=== PATIENT | female | born 1990 | race Caucasian/White ===

== ENCOUNTER → 2016-12-11 | Outpatient (CLI) | payer OTHER ==
[2016-12-12 15:50] LABS: A/G RATIO 1.04 (()); ALB PEP SER 3.8 g/dL (3.4-4.7); ALP1 GLOB 0.2 g/dL (0.1-0.3); BETA GLOBS 1.1 g/dL (0.7-1.2); GAMMA GLOBS 1.4 g/dL (0.6-1.6); TOT PRT SERUM 7.5 g/dL (6.3 - 7.9)
[2016-12-12 18:33] LABS: IMPRESSION SEE COMMENTS (())
== END ==
LOC: LAB 08:29
PROVIDERS: ATTEND Physician Assistant
DX: R77.8 Other specified abnormalities of plasma proteins (principal)
CPT/HCPCS: 84155; 84165; 86334

== ENCOUNTER 2017-03-15 07:03 | Emergency (ER) | payer OTHER ==
[2017-03-15 07:20] VITALS: TEMP 97.7
[2017-03-15] MEDS ORDERED: Sodium Chloride 0.9% 1,000 ML PRIMARY IV ONE (07:21)
[2017-03-15] MEDS ORDERED: MORPHINE SULFATE 4 MG/1 ML IVP ONE (07:21)
[2017-03-15] MEDS ORDERED: ONDANSETRON 4 MG/2 ML VIAL IVP ONE (07:21)
--- NOTE | 2017-03-15 07:27 | PDOC ---
Female Problem HPI - General Chief Complaint: Genitourinary Complaint Stated Complaint: left flank pain Date Seen by Provider: 03/15/17 Time Seen by Provider: 07:22 Source: POSITIVE: Patient Exam Limitations: POSITIVE: No limitations Nurse's Notes Reviewed & Considered: Yes - History of Present Illness Initial Comments: Patient complaining of left lower quadrant and left flank pain. Patient was awakened this morning at 0500 hrs. with left CVA pain radiating into her flank and groin. Pain is described as pressure and sharp, that never completely goes away and comes in waves. She is unable to find a comfortable position. She and her have been trying to become . 2 days ago she began her menses which she stated has been irregular this week. It started out light, then became very heavy, and then became lightheaded again. She denies any fevers but does have chills and sweats. She has nausea but no vomiting no diarrhea. Denies headache. Denies chest pain, shortness of breath or cough. Body Location Affected: REPORTS: Abdomen Timing: REPORTS: Abrupt Duration: 1 hour Severity: Severe Quality: REPORTS: Cramping, "Pain", Sharpness, Stabbing, Throbbing, Pressure Location of Pain: REPORTS: Left, Abdominal Pain, Pelvic Pain, Pelvic Cramping, Pelvic Pressure, Sharp, Flank Pain Vaginal Bleeding: REPORTS: Abnormal Bleeding : 0 Para: 0 Sexual History: REPORTS: Active, No Contraceptive Urinary Symptoms: REPORTS: Discomfort w/ Urination, Burning w/ Urination Discharge: REPORTS: Vaginal Discharge Similar Symptoms Previously: No Recent Care Received: REPORTS: Denies Any Prior Injuries Related to Current Complaint?: No - Patient Home Medications Home Medications: Home Medications NK [No Home Medications Reported] 03/15/17 - Patient Allergies Allergies/Adverse Reactions: Allergies Allergy/AdvReac Type Severity Reaction Status Date / Time No Known Allergies Allergy Verified 03/15/17 07:08 Past Medical History - heen HEENT History: Denies History Cardiovascular History: Denies History Respiratory History: Denies History Gastrointestinal History: Denies History Genitourinary History: Denies History Endocrine History: Denies History Musculoskeletal History: Denies History Prosthesis or Implant: No Neurological History: Denies History Blood Disorders: Denies History Psychiatric History: Denies History History of Sexually Transmitted Diseases: No Female Reproductive History: Denies History LMP: 03/13/2017 Cancer History: Denies History In Past Year Been Physically Harmed or Verbally Threatened: No (PER PATIENT) History of MDRO: No History of Other Communicable Diseases: No Tobacco Use: Never Smoker Alcohol Use: None Substance Use Type: None Previous Surgical History: Yes Type / Date of Surgery: LEFT KNEE SCOPE Anesthesia Reactions: No Malignant Hyperthermia: No Family History of Malignant Hyperthermia: No Significant Family History: No pertinent family hx ROS - Limitations ROS Limitations: No Limitations Constitution: REPORTS: Chills, Diaphoresis Cardiovascular: REPORTS: Denies Cardiac Symptoms Respiratory: REPORTS: Denies Resp Symptoms Neurological: REPORTS: Denies Neuro Symptoms Gastrointestinal: REPORTS: Abdominal Pain, Nausea Endocrine: REPORTS: Denies Symptoms Musculoskeletal: REPORTS: Back Pain Genitourinary: REPORTS: Dysuria, Difficulty Urinating Eyes: REPORTS: Denies Symptoms ENT: REPORTS: Denies Symptoms Skin: REPORTS: Denies Skin Symptoms Lympathic: REPORTS: Denies Lympathic Symptoms Immunologic: POSITIVE: Denies Symptoms Psychiatric: POSITIVE: Denies Psych Symptoms Female Genitourinary Exam - General Appearance General Appearance: POSITIVE: Alert, Cooperative, No Evidence of Trauma, Moderate Distress - HEENT HEENT: POSITIVE: Head Inspection Nml, Eyes Inspection Nml, Ears Inspection Nml, Nose Inspection Nml, PERRL, EOMI - Neck Neck: POSITIVE: Normal Inspection, No Apparent Injury - Respiratory Respiratory: POSITIVE: No Respiratory Distress, Breath Sounds Normal, Chest Non- Tender - Cardiovascular Cardiovascular: POSITIVE: Regular Rate and Rhythm, Heart Sounds Normal - Abdomen Abdomen: POSITIVE: No Distention, Tenderness (Generalized tenderness greatest in the left lower quadrant and left flank.), Guarding, Decreased Bowel Sounds - Back Back: POSITIVE: CVA Tenderness (L) - Skin Skin: POSITIVE: Intact, Normal For Race, Warm, Dry, No Rash - Extremities Extremity: Non-Tender: (All Extremities), Normal ROM: (All Extremities), Normal Inspection: (All Extremities), Pelvis Stable: (All Extremities) - Neurological / Psychological Neurological: POSITIVE: Affect Apporpriate, Oriented X3, Motor Normal, Sensation Normal Female Genitourinary Progress - Results Reviewed by me Xrays/CTs/US Reviewed by me: Yes Discussed with Radiologist: Yes Lab Results Reviewed: Yes Lab Results:: Laboratory Results 03/15/17 Range/Units 07:15 WBC 7.71 (4.8-10.8) 10^3/uL RBC 4.54 (4.20-5.40) 10^6/uL Hgb 13.2 (12.0-16.0) g/dL Hct 39.3 (37.0-47.0) % MCV 86.6 (81-99) FL MCH 29.1 (27-31) PG MCHC 33.6 (33-37) g/dL RDW Std Deviation 42.7 (39-50) fL RDW Coeff of [place] 13.9 (11.5-14.5) % Plt Count 370 H (140-350) 10*3/uL MPV 9.7 (7.4-12.2) FL Immature Gran % (Auto) 0.1 (0-5) % Neut % (Auto) 41.8 L (50-80) % Lymph % (Auto) 50.3 H (10-50) % [place] % (Auto) 5.4 (5-15) % Eos % (Auto) 1.6 (0-8) % Baso % (Auto) 0.8 (0-1) % Immature Gran # (Auto) 0.01 10*3/UL Neut # (Auto) 3.22 10*3/UL Lymph # (Auto) 3.88 10*3/uL [place] # (Auto) 0.42 (0.3-0.8) 10*3/UL Eos # (Auto) 0.12 10*3/UL Baso # (Auto) 0.06 10*3/UL WBC Morphology Comment Normal morphology (NORM) Plt Morphology Comment Normal morphology (NORM) RBC Morph Comment Normal morphology (NORM) Sodium 138 (135-145) meq/L Potassium 3.3 L (3.8-5.2) meq/L Chloride 102 (98-112) meq/L Carbon Dioxide 24 (23-33) meq/L Anion Gap 12 (5-20) BUN 12 (7-22) mg/dL Creatinine 0.8 (0.50-1.20) mg/dL Estimated GFR > 60 (>60 ml/min/1.73m(2)) BUN/Creatinine Ratio 15.00 (6-20) Glucose 109 (78-110) mg/dL Calculated Osmolality 286.0 (267-292) mOsm/kg Calcium 9.1 (8.7-10.7) mg/dL Magnesium 2.0 (1.6-2.4) mg/dL Total Bilirubin 0.4 (0.3-1.2) mg/dL AST 27 (8-39) IU/L ALT 29 (9-52) IU/L Alkaline Phosphatase 49 (38-126) IU/L C-Reactive Protein < 0.5 (0.0-0.9) mg/dL Total Protein 7.4 (6.1-8.0) g/dL Albumin 4.2 (3.5-4.8) g/dL Globulin 3.2 (2.50-4.10) g/dL Albumin/Globulin Ratio 1.30 (1.3-2.0) mg/g TSH 2.25 (0.2700-4.2000) uIU/mL Serum HCG, Qual Negative Ur Collection Type Clean catch urine Urine Color Yellow Urine Clarity Slightly cloudy (CLEAR) Urine pH 5.5 (5.0-8.5) Ur Specific [place] 1.025 (1.005-1.030) Urine Protein 30 (NEG) mg/dl Urine Glucose (UA) Negative (NEG) mg/dL Urine Ketones Negative (NEG) Urine Occult Blood Large H (NEG) Urine Nitrate Negative (NEG) Urine Bilirubin Negative (NEG) Urine Urobilinogen 0.2 (0.2) EU/dL Ur Leukocyte Esterase Negative (NEG) Urine RBC 60-80 (NONE) /hpf Urine WBC 1-3 (NONE) Ur Squamous Epith Cells Few (NONE) Ur Renal Epithelial Cell None (NONE) Urine Crystals None Urine Bacteria None (NONE) Urine Casts None (NONE) Urine Mucus Few (NONE) Urine Trichomonas None (NONE) Urine Yeast None (NONE) Ur Culture Indicated? Culture set - Patient's Progress Pain Medication Addressed: POSITIVE: Yes Re-Examine Time: 08:51 Status: POSITIVE: Improved MDM / ED Course: Patient was examined, IV started, blood drawn and sent to the lab for studies, radiographic studies were obtained. Findings: CBC is within normal limits, comprehensive metabolic panel is unremarkable. Urinalysis positive for blood and positive for bacteria with leukocytes esterase present. CT scan of her abdomen and pelvis shows no acute intra-abdominal or intrapelvic abnormalities. Assessment: Abdominal pain. Likely etiology includes kidney stone which has passed, urinary tract infection, menstrual cramps. Plan: Discharge home, Oleksandr Hernandes. Follow-up with primary care physician. - Consult Counseled: POSITIVE: Patient, RE: Lab Results, RE: Radiology Results, RE: DX, RE : Need for F/U Patient Care Time - Estimated PCT Patient Care Time (In Minutes): 30 Vital Signs - Recent Vital Signs Vital Signs: Vital Signs (Last 8 hours) Temp Pulse Resp BP BP Pulse Ox 03/15/17 08:07 82 15 133/81 99 03/15/17 07:10 97.7 F 61 20 132/113 98 - VS Reviewed Vital Signs Reviewed: Yes Discharge Clinical Impression: Urinary tract infectious disease Discharge Disposition: Discharged to Home Condition: Stable Patient Instructions Given at Discharge: Urinary Tract Infection in Women (ED)
[2017-03-15 07:31] LABS: BILIRUBIN,URINE NEGATIVE (NEG); COLOR,URINE YELLOW; GLUCOSE, URINE (UA) NEGATIVE (NEG); NITRATE,URINE NEGATIVE (NEG); OCCULT BLOOD,URINE LARGE (NEG); PH,URINE 5.5 (5.0-8.5); PROTEIN,URINE 30 mg/dl (NEG); UROBILINOGEN,URINE 0.2 EU/dL (0.2)
[2017-03-15 07:36] LABS: BLOOD UREA NITROGEN 12 mg/dL (7-22); CALCIUM 9.1 mg/dL (8.7-10.7); EST GLOMERULAR FILTRATION > 60 (>60 ml/min/1.73m(2)); SERUM ALBUMIN 4.2 g/dL (3.5-4.8)
[2017-03-15 07:37] LABS: CLARITY,URINE SLIGHTLY CLOUDY (CLEAR); URINE SAMPLE TYPE CLEAN CATCH URINE
[2017-03-15 07:38] LABS: BASOPHILS # (AUTO) 0.06 10*3/UL; BASOPHILS % (AUTO) 0.8 % (0-1); EOSINOPHILS # (AUTO) 0.12 10*3/UL; EOSINOPHILS % (AUTO) 1.6 % (0-8); HEMATOCRIT 39.3 % (37.0-47.0); HEMOGLOBIN 13.2 g/dL (12.0-16.0); LYMPHOCYTES # (AUTO) 3.88 10*3/uL; MEAN CORPUSCULAR HEMOGLOBIN 29.1 PG (27-31); MEAN CORPUSCULAR HGB CONC 33.6 g/dL (33-37); MEAN CORPUSCULAR VOLUME 86.6 FL (81-99); MEAN PLATELET VOLUME 9.7 FL (7.4-12.2); MONOCYTES # (AUTO) 0.42 10*3/UL (0.3-0.8); MONOCYTES % (AUTO) 5.4 % (5-15); NEUTROPHILS # (AUTO) 3.22 10*3/UL; NEUTROPHILS % (AUTO) 41.8 % (50-80); RBC,URINE 60-80 /hpf; RED BLOOD COUNT 4.54 10^6/uL (4.20-5.40); SQUAMOUS EPITHELIAL CELL,UR FEW
[2017-03-15 07:42] LABS: C-REACTIVE PROTEIN < 0.5 mg/dL (0.0-0.9); PLATELET MORPHOLOGY COMMENT NORMAL MORPHOLOGY (NORM); RBC MORPHOLOGY COMMENT NORMAL MORPHOLOGY (NORM); WBC MORPHOLOGY COMMENT NORMAL MORPHOLOGY (NORM)
[2017-03-15 08:08] VITALS: RESP 15
--- NOTE | 2017-03-15 08:36 | DI ---
CT ABDOMEN SCAN WITH IV CONTRAST, 03/15/2017 7:21 AM : Clinical History: Left lower quadrant pain. Previous Exam: None at this facility. Scans are performed from the lower lung bases through the liver and kidneys with IV contrast. 95 ml o f Isovue 300 was injected IV. No oral or rectal contrast was ordered. The lung bases are clear. The liver is normal. The gallbladder is grossly normal. There is no abnorma lity of the spleen, pancreas, and adrenal glands. Both kidneys are normal in size, shape, position an d contour. There is no hydronephrosis or hydroureter. No renal or ureteral calculi are present. There are no abnormal retrocrural or periaortic nodes. No ascites is present. READING: Normal CT abdomen scan. CT PELVIS SCAN WITH IV CONTRAST, 03/15/2017 7:21 AM: Clinical History: See above. Previous Exam: None at this facility. Scans are performed from just superior to the umbilicus to the symphysis pubis with IV contrast. This is the same bolus of contrast used for the CT scans of the abdomen. Scans through the lower abdomen and pelvis show no masses or abnormal fluid collections. There is no adenopathy. The appendix is normal. The small bowel, terminal ileum, and ileocecal valve are normal. The colon is also normal. There are no hernias. The uterus and both ovaries are normal. READING: Normal CT scan of the pelvis.
== END 2017-03-15 09:05 | disposition home or self-care (01) ==
LOC: ER 07:03
DX: N39.0 Urinary tract infection, site not specified (principal); R11.0 Nausea; R10.32 Left lower quadrant pain
CPT/HCPCS: 74177; 80053; 81001; 81003; 83735; 84443; 84703; 85025; 86140; 87088; 96366; 96374; 96375; 99283; J2270; J2405; J7030

== ENCOUNTER 2019-01-06 08:43 | Observation (INO) ==
[2019-01-06 09:59] LABS: BILIRUBIN,URINE NEGATIVE (NEG); CLARITY,URINE CLEAR (CLEAR); COLOR,URINE YELLOW (Y); GLUCOSE, URINE (UA) NEGATIVE (NEG); OCCULT BLOOD,URINE NEGATIVE (NEG); PH,URINE 8.5 (5.0-8.5); PROTEIN,URINE 30 mg/dl (NEG); UROBILINOGEN,URINE 0.2 EU/dL (0.2)
[2019-01-06 10:05] LABS: BACTERIA,URINE FEW; URINE CRYSTALS FEW; URINE SAMPLE TYPE CLEAN CATCH URINE
[2019-01-06 10:42] VITALS: O2SAT 98
[2019-01-06] MEDS ORDERED: LIDOCAINE W/ SODIUM BICARB 0.5 ML SYR SUBD PRN (11:40)
[2019-01-06] MEDS ORDERED: Ondansetron ODT Tab 4 MG TAB PO PRN (11:40)
[2019-01-06] MEDS ORDERED: CALCIUM CARBONATE 500 MG (TUMS) CHEWABLE TABLET PO PRN (11:40)
[2019-01-06] MEDS ORDERED: Lactated Ringers 1,000 ML PRIMARY IV ONE (11:40)
[2019-01-06] MEDS ORDERED: ONDANSETRON 4 MG/2 ML VIAL IVP PRN (11:40)
--- NOTE | 2019-01-06 12:01 | OB.PROGRES ---
Intake - - Reason for Visit/Chief Complaint: Leakage of Fluid Admitted From: Home - Estimated Due Date: 03/27/19 Gestational Age in Weeks and Days: 28 Weeks and 4 Days : 1 Maternal - Vital Signs Last Taken Vital Signs: Vital Signs - Last Taken Temperature 98.2 F 01/06/19 09:29 Pulse Rate 80 01/06/19 09:29 Respiratory Rate 20 01/06/19 09:29 Blood Pressure 117/77 01/06/19 09:29 Pulse Ox 98 01/06/19 09:29 - Vaginal Discharge Vaginal Bleeding Amount: None Vaginal Discharge Amount: Moderate Vaginal Discharge Description: Thick Vaginal Discharge Color: White Vaginal Itching: No Results - Bedside Testing Bedside Urine Ketone: Trace Bedside Urine Leukocytes Esterase: Moderate Bedside Urine Nitrite: Negative Bedside Urine Occult Blood: Negative Bedside Urine Protein: Trace Bedside Specific [place]: 1.030 Assessment and Plan - Assessment / Plan Additional Assessment/Plan Details: The patient is a 26-year-old at 28-4/7 weeks who was followed in [place], [place] for her . The patient presented to our labor and delivery after having a gush of fluid earlier this morning and then wearing a pad and the pad was wet. The patient was not having contractions that she was aware of. No vaginal bleeding. The patient does relay that she was started on iron twice a day earlier in the week and has been nauseated and not taking as much fluids or food secondary to the nausea that the iron has caused. Her stomach has been slightly upset. Some loose stools. No fever or chills. No dysuria. In labor and delivery, the nurse completed a speculum exam and there was white discharge present. No liquid fluid noted. Cervix appeared closed. A vaginosis panel was completed and this was negative. Amnio sure was completed and this was negative. Formal ultrasound showed MILADY to be 5.3 cm. The baby was in the breech presentation. Head circumference was 11th percentile, BPD was the less than the 2nd percentile abdominal circumference was 71st percentile and femur length was 24th percentile. Urinalysis with micro-was completed and there were 5-10 white blood cells, no red blood cells and no epithelial cells. Moderate leukoesterase. Past medical history-no hypertension, no diabetes, no asthma. No known drug allergies No tobacco, no alcohol, no drugs. CUT OFF [place] [employer] [employer] history with menarche age 11, no STI history, no abnormal Pap smear history. OB history-patient states that she had difficulty conceiving and this was conceived using Clomid. Objective: Please see the vital signs No acute distress, alert and oriented 3 Lungs clear to auscultation Heart regular rate and rhythm Abdomen is gravid, soft, nontender, no guarding or rebound Extremities without edema and no Homans Labs, amnio sure was negative Vaginosis panel negative for bacterial vaginosis or yeast infection fibronectin was negative UA showed 5-10 white blood cells, no red blood cells, no epithelial cells, moderate leukocyte esterase, and 1+ protein Ultrasound results as above, MILADY was 5.3, baby is in breech presentation and head circumference was 11th percentile and BPD was less than 2nd percentile. AC was 71st percentile and femur length was 24th percentile. External monitoring showed no regular contractions, heart rate with good accelerations. Assessment: IUP 28-4/7 weeks with oligohydramnios and possible PPROM this morning. Amnio sure was negative. There was no fluid on speculum exam and the patient is not leaking fluid currently although she does have a white vaginal discharge by nurse's exam and the patient states that she feels moist in her vaginal area. No leaking of fluid. Hopefully, the oligohydramnios is secondary to the decrease in oral intake sec ondary to the patient's nausea and not feeling well over the past several days since starting iron. The patient specific gravity of her urine was 1.020. Hopefully, the gush of fluid was urine secondary to the patient having a urinary tract infection and having increased spontaneous leakage of urine. The BPD was less than 2nd percentile but the baby is in the breech presentation. The head circumference was 11th percentile. When a baby is in the breech presentation, it is normal for the BPD to be more narrow in presentation. EFW was 1272 grams which is 42nd percentile. The patient's cervical length was 41 mm transabdominally. The patient states that she is anemic by labs at 28 weeks. The patient believes that her 28 week labs were normal otherwise. Plan: IV fluids will be administered with LR bolus over the next hour and then 125 an hour. Check a CBC and CMP. Recheck for amnio sure for PPROM this afternoon. If amnio sure is negative, then we will continue IV fluids tomorrow morning. If the amnio sure is positive, then betamethasone would be offered to the patient with a repeat dose in 24 hours and I would contact our maternal- medicine consultants to evaluate for transfer secondary to PPROM at 28-4/7 weeks. I discussed the above plan with the patient and her , who is in [place], [place], and both expressed understanding with the current plan. External monitoring-continuous Clear liquids SCDs
--- NOTE | 2019-01-06 12:26 | DI ---
US OB , Limited,01/06/2019 9:30 AM: Clinical History: Leaking fluid Previous Exam: None at this facility. Findings: Multiple transabdominal grayscale and color Doppler sonographic images are obtained through the pelvi s and demonstrate Oligohydramnios with an amniotic fluid index measuring 5.3 cm. There is a single live intrauterine gestation in breech presentation. There is normal motions of the limbs. Detected Doppler heart tones are unremarkable. The cervix is long and closed measuring 4.1 cm in length. The placenta is anterior and grade 1 without visible defects. Detected Doppler heart tones were not measured. Estimated gestational age is determined by a composite of biparietal diameter, which measured at less than the 2nd percentile, abdominal circumference, head circumference and femur length and yielded an estimated gestational age by ultrasound of 28 weeks 2 days. Estimated weight was 1272 g (42nd percentile). Impression: 1. Oligohydramnios. 2. Single live intrauterine gestation with size equal to dates although the biparietal diameter measu res at less than the 2nd percentile.
[2019-01-06 14:06] LABS: BASOPHILS # (AUTO) 0.02 10*3/UL; BASOPHILS % (AUTO) 0.2 % (0-1); EOSINOPHILS # (AUTO) 0.03 10*3/UL; EOSINOPHILS % (AUTO) 0.3 % (0-8); Hematocrit [HCT] 32.1 % (37.0-47.0); Hemoglobin [HGB] 10.2 g/dL (12.0-16.0); MEAN CORPUSCULAR HEMOGLOBIN 26.6 PG (27-31); MEAN CORPUSCULAR HGB CONC 31.8 g/dL (33-37); MEAN CORPUSCULAR VOLUME 83.8 FL (81-99); MEAN PLATELET VOLUME 9.7 FL (7.4-12.2); MONOCYTES # (AUTO) 0.52 10*3/UL (0.3-0.8); MONOCYTES % (AUTO) 4.4 % (5-15); NEUTROPHILS # (AUTO) 8.47 10*3/UL; NEUTROPHILS % (AUTO) 71.2 % (50-80); RED BLOOD COUNT 3.83 10^6/uL (4.20-5.40); WBC MORPHOLOGY COMMENT NORMAL MORPHOLOGY (NORM)
[2019-01-06 14:07] LABS: PLATELET MORPHOLOGY COMMENT NORMAL MORPHOLOGY (NORM); RBC MORPHOLOGY COMMENT NORMAL MORPHOLOGY (NORM)
[2019-01-06 14:17] LABS: BLOOD UREA NITROGEN 5 mg/dL (7-22); SERUM ALBUMIN 3.6 g/dL (3.5-4.8)
[2019-01-06] MEDS: Lactated Ringers 1,000 ML PRIMARY IV SCH ×2 (16:00→21:07)
--- NOTE | 2019-01-06 16:08 | OB.PROGRES ---
Interval History: The patient states that she has felt a couple contractions and uterine irritability with tightening. No more gushes of fluid. No vaginal bleeding. Positive movement. Objective - Cervical Exam Cervical Exam: Sterile speculum exam completed. White vaginal discharge in vaginal vault wiped away with sterile large Q-tip. Cervical OS visualized. There was minimal bright red blood perhaps from the previous speculum exam a couple hours ago. There was no fluid in the vaginal vault. No pooling. Negative fluid with Valsalva at cervical OS. Q-tip to vaginal sidewalls and then to slide. Negative ferning. The cervix appeared closed. Digital exam not completed. The patient has significant vaginismus with speculum exam. The patient informed me that she has a history of this. [place]: Some uterine irritability noted earlier. Now after 2 L of IV fluid, much decreased uterine irritability noted Heart Rate Interpretation Category: Category I - Labs CBC and BMP: 01/06/19 14:03 01/06/19 14:03 - Vital Signs Last Taken Vital Signs: Vital Signs - Last Taken Temperature 98.3 F 01/06/19 11:40 Pulse Rate 74 01/06/19 11:40 Respiratory Rate 18 01/06/19 11:40 Blood Pressure 111/65 01/06/19 11:40 Pulse Ox 98 01/06/19 11:40 Assessment and Plan - Assessment / Plan Additional Assessment/Plan Details: Assessment: IUP 28-4/7 weeks with oligohydramnios. History of gush of fluid and then moist perineal pad earlier today. Just now, no ferning and no pooling and negative nitrazine. The amnio sure was completed and was negative again. Uterine irritability present but did improve with IV fluids. Urinary tract infection by UA with micro--culture is pending. Plan: Now that we have had amnio sure 2 negative as well as sterile speculum exam showing no ferning, no pooling and negative nitrazine, I would like to observe the patient overnight with IV fluids and then recheck an ultrasound tomorrow for MILADY. Additionally, Ancef 2 g IV now for UTI and then 2 g every 8 hours until tomorrow. If MILADY improves, I will place the patient on Macrobid twice a day. I will hold the patient's ferrous sulfate currently that she was started on earlier in the week. I will also offered the patient betamethasone 12 mg IM and repeat in 24 hours in case oligohydramnios persists. I explained to the patient that this can help improve with lung maturity and a delivery, possible prevention of interventricular hemorrhage, and possible prevention of necrotizing enterocolitis if there is a delivery.
[2019-01-06] MEDS: BETAMET ACET/BETAMET NA PH 6 MG/1 ML - 5 ML IM SCH (16:51)
[2019-01-06] MEDS: ceFAZolin Inj 2gm (Premix) 2 GM/50 ML BAG IV SCH ×2 (17:55→23:57)
[2019-01-07] MEDS ORDERED: ACETAMINOPHEN 325 MG TABLET PO ONE (00:55)
[2019-01-07] MEDS ORDERED: HYDROXYZINE PAMOATE 25 MG CAPSULE PO ONE (00:55)
[2019-01-07] MEDS ORDERED: SIMETHICONE 80 MG TABLET PO ONE (00:55)
[2019-01-07] MEDS: Lactated Ringers 1,000 ML PRIMARY IV SCH ×2 (03:09→08:26)
[2019-01-07] MEDS ORDERED: FAMOTIDINE 20 MG TABLET PO PRN (04:23)
[2019-01-07] MEDS: ceFAZolin Inj 2gm (Premix) 2 GM/50 ML BAG IV SCH (08:26)
[2019-01-07 08:34] VITALS: TEMP 98.1
[2019-01-07] MEDS ORDERED: Prenatal Multivitamin Tab 1 TAB TAB PO SCH (09:00)
--- NOTE | 2019-01-07 13:10 | OB.PROGRES ---
Interval History: The patient states that she did not sleep well last night but didn't sleep some this morning. She attributes decreased sleep secondary to the steroids and also being in the hospital and concerned. Patient had some low back pain last night and today. She has some diffuse mild abdominal discomfort but no pain. No gush of fluid. No bleeding. Baby is moving well. The patient is tolerating a regular diet well. No fever or chills. The patient does have a history of pyelonephritis. Objective - Cervical Exam Cervical Exam: Deferred [place]: No regular contractions. No significant irritability Heart Rate Interpretation Category: Category I - Labs CBC and BMP: 01/06/19 14:03 01/06/19 14:03 - Vital Signs Last Taken Vital Signs: Vital Signs - Last Taken Temperature 98.1 F 01/07/19 08:30 Pulse Rate 93 01/07/19 10:00 Respiratory Rate 18 01/07/19 08:30 Blood Pressure 119/71 01/07/19 08:30 Pulse Ox 98 01/07/19 08:30 - Additional Details Additional Details: Lungs clear to auscultation Heart regular rate and rhythm Abdomen is soft, gravid, no guarding or rebound. The patient states it is slightly uncomfortable but not painful to palpate Extremities without Homans No edema Assessment and Plan - Assessment / Plan Additional Assessment/Plan Details: Assessment: IUP 28-5/7 weeks with oligohydramnios with an MILADY of 5.3 yesterday. The patient has been receiving IV fluids and did receive betamethasone IM yesterday and will receive the second injection to complete the course later today. UTI by AUA but urine culture this morning showed contaminant. I did speak with the lab and they are re-running the CARLOS. The patient has been receiving Ancef every 8 hours so I will not order another urine culture since she has been receiving antibiotics. Uterine irritability yesterday but greatly improved today with IV hydration The patient has GERD and I was called this morning secondary to reflux. The patient was given Pepcid. The patient does take Pepcid at home. Her symptoms are much improved Plan: The patient will have an ultrasound soon for an MILADY evaluation. Plan Will be dependent on the MILADY results. Await the urine culture evaluation. I will still plan on continued treatment for a presumed urinary tract infection.
[2019-01-07 14:28] VITALS: BP 122/77; RESP 20
--- NOTE | 2019-01-07 15:01 | OB.PROGRES ---
Objective - Labs CBC and BMP: 01/06/19 14:03 01/06/19 14:03 - Vital Signs Last Taken Vital Signs: Vital Signs - Last Taken Temperature 98.1 F 01/07/19 13:35 Pulse Rate 105 H 01/07/19 13:35 Respiratory Rate 20 01/07/19 13:35 Blood Pressure 122/77 01/07/19 13:35 Pulse Ox 98 01/07/19 13:35 Assessment and Plan - Assessment / Plan Additional Assessment/Plan Details: MILADY was initially completed by the filament coil winder. The filament coil winder a good fluid pocket in the right upper quadrant of the uterus but there was also significant umbilical cord so that fluid pocket could not be measured. The MILADY total and the other 3 quadrants was 5.1. However, subjectively the MILADY looked i mproved according to the filament coil winder. The patient change positions in the bed for 20 of 30 minutes while the filament coil winder completed another patient study and then the filament coil winder returned. I was present for the repeat amniotic fluid index or MILADY. The MILADY was improved at 8.6 but not including the right upper quadrant secondary to the umbilical cord. I then ultrasounded the patient and there was positive movement. The baby was in the breech presentation. The left upper quadrant had 3.5 cm of fluid. The left lower quadrant had 4 cm of fluid and the right lower quadrant had 4 cm of fluid. This totals 11.5 cm. The right upper quadrant did have good fluid and I did find a small pocket without umbilical cord of 1.6 cm. Not taking into account the right upper quadrant measurement, the MILADY was 11.5 cm. Initially, the patient stated that she would like to go to [place] for evaluation. However, when I went back into the patient's room after the patient voided, the patient stated that they had spoken with their [employer] physician in [place], [place] and that there [employer] physician would see her tomorrow and repeat an ultrasound. They were very comfortable with this versus going down to [place], [place] where our maternal medicine referral physicians referral service is located. Since the patient has not leaked any more fluid vaginally and the MILADY is impro tami today, I am comfortable with the patient going home and seeing her [employer] physician, Dr. Thomas, tomorrow for a repeat MILADY. I had offered to have the MILADY repeated here, but the patient is very comfortable with her [employer] physician in [place], [place] that she has been seeing for quite some time and she will see Dr. Thomas tomorrow for an MILADY. With respect to the patient's potential urinary tract infection, the urine culture had several contaminants as discussed in the previous note. I contacted the lab and they reviewed the urinalysis from yesterday. The report on the urinalysis stated that there were no squamous epithelial cells. The repeat slide today on the microscopic for the urinalysis showed that there were several squamous epithelial cells which would account for the urine culture contaminant. The question is if the patient does have a urinary tract infection. The patient states that she is voiding better today. I did see the patient's urine specimen before was sent to the lab yesterday since the nurse showed it to me because it was significantly cloudy and concent rated. That was the reason I was not surprised with the urinalysis report with 5-10 white blood cells and moderate leukocyte esterase but nitrate negative. Therefore, I treated the patient with IV Ancef every 8 hours and my plan was to switch the patient to Macrobid when she was discharged. Now with this new information, I discussed with the patient the pros and cons of continuing treatment for a UTI versus not. The patient and I decided together that I would prescribe Macrobid twice a day for 5 days. I did explain that Macrobid or nitrofurantoin is commonly used in . The patient will receive her second dose of betamethasone this afternoon and then the patient will be discharged home.
--- NOTE | 2019-01-07 15:10 | DCSUMMARY ---
Hospitalization Summary Admit Date: 01/06/19 Discharge Date: 01/07/19 Primary Diagnosis:: IUP 25-1/2 weeks gestation, oligohydramnios Hospital Course: Assessment: IUP 28-5/7 weeks with oligohydramnios with an MILADY of 5.3 yesterday. The patient has been receiving IV fluids and did receive betamethasone IM yesterday and will receive the second injection to complete the course later today. UTI by AUA but urine culture this morning showed contaminant. I did speak with the lab and they are re-running the CARLOS. The patient has been receiving Ancef every 8 hours so I will not order another urine culture since she has been receiving antibiotics. Uterine irritability yesterday but greatly improved today with IV hydration The patient has GERD and I was called this morning secondary to reflux. The patient was given Pepcid. The patient does take Pepcid at home. Her symptoms are much improved Plan: The patient will have an ultrasound soon for an MILADY evaluation. Plan Will be dependent on the MILADY results. Await the urine culture evaluation. I will still plan on continued treatment for a presumed urinary tract infection. MILADY was initially completed by the overhead foreman. The overhead foreman a good fluid pocket in the right upper quadrant of the uterus but there was also significant umbilical cord so that fluid pocket could not be measured. The MILADY total and the other 3 quadrants was 5.1. However, subjectively the MILADY looked improved according to the overhead foreman. The patient change positions in the bed for 20 of 30 minutes while the overhead foreman completed another patient study and then the overhead foreman returned. I was present for the repeat amniotic fluid index or MILADY. The MILADY was improved at 8.6 but not including the right upper quadrant secondary to the umbilical cord. I then ultrasounded the patient and there was positive movement. The baby was in the breech presentation. The left upper quadrant had 3.5 cm of fluid. The left lower quadrant had 4 cm of fluid and the right lower quadrant had 4 cm of fluid. This totals 11.5 cm. The right upper quadrant did have good fluid and I did find a small pocket without umbilical cord of 1.6 cm. Not taking into account the right upper quadrant measurement, the MILADY was 11.5 cm. Initially, the patient stated that she would like to go to [place] for evaluation. However, when I went back into the patient's room after the patient voided, the patient stated that they had spoken with their [employer] physician in [place], [place] and that there [employer] physician would see her tomorrow and repeat an ultrasound. They were very comfortable with this versus going down to [place], [place] where our maternal medicine referral physicians referral service is located. Since the patient has not leaked any more fluid vaginally and the MILADY is improved today, I am comfortable with the patient going home and seeing her [employer] physician, Dr. Thomas, tomorrow for a repeat MILADY. I had offered to have the MILADY repeated here, but the patient is very comfortable with her [employer] physician in [place], [place] that she has been seeing for quite some time and she will see Dr. Thomas tomorrow for an MILADY. With respect to the patient's potential urinary tract infection, the urine culture had several contaminants as discussed in the previous note. I contacted the lab and they reviewed the urinalysis from yesterday. The report on the urinalysis stated that there were no squamous epithelial cells. The repeat slide today on the microscopic for the urinalysis showed that there were several squamous epithelial cells which would account for the urine culture contaminant. The question is if the patient does have a urinary tract infection. The patient states that she is voiding better today. I did see the patient's urine specimen before was sent to the lab yesterday s gary the nurse showed it to me because it was significantly cloudy and concentrated. That was the reason I was not surprised with the urinalysis report with 5-10 white blood cells and moderate leukocyte esterase but nitrate negative. Therefore, I treated the patient with IV Ancef every 8 hours and my plan was to switch the patient to Macrobid when she was discharged. Now with this new information, I discussed with the patient the pros and cons of continuing treatment for a UTI versus not. The patient and I decided together that I would prescribe Macrobid twice a day for 5 days. I did explain that Macrobid or nitrofurantoin is commonly used in . The patient will receive her second dose of betamethasone this afternoon and then the patient will be discharged home. / Postop Complications: Not applicable Complications: Not applicable Exam - Vitals Vital Signs: Vital Signs Temperature 98.1 F Temperature Source Oral Pulse Rate [Pulse Oximeter] 105 Pulse Rate 80 Respiratory Rate 20 Blood Pressure [Left Arm] 122/77 Blood Pressure [Right Arm] 117/64 Pulse Ox 98 Oxygen Delivery Method Room Air Height 5 ft 5 in Weight 176 lb
--- NOTE | 2019-01-07 15:37 | DI ---
[facility] OB , Limited,01/07/2019 1:00 PM: Clinical History: Oligohydramnios Previous Exam: January 06, 2019 Findings: Multiple grayscale and color Doppler sonographic images are obtained through the pelvis. The amniotic fluid index measures 13.1. This measured 5.3 on the prior exam. The placenta appears grossly normal. Detected Doppler heart tones measure 140 beats per minute. Impression: Single live intrauterine gestation with a normal amniotic fluid index (13.1 cm).
[2019-01-07] MEDS: BETAMET ACET/BETAMET NA PH 6 MG/1 ML - 5 ML IM SCH (15:52)
== END 2019-01-07 16:24 | disposition home or self-care (01) ==
LOC: OBOP 08:43 → OBIP 08:43
PROVIDERS: ADMIT Obstetrics & Gynecology; ATTEND Obstetrics & Gynecology